=== PATIENT | female | born 1995 | race Hispanic/Latino ===

== ENCOUNTER 2021-05-28 16:25 | Emergency (ER) | payer OTHER ==
[2021-05-28 20:09] LABS: Bilirubin Neg (Negative); Blood, Urine 50 (Negative); Clarity Cloudy (Clear); Glucose, Urine (Dipstick) Normal (Negative); Ketone, Urine 150 mg/dL (Negative); Leukocyte 500 (Negative); Nitrite Positive (Negative); Protein, Urine (Dipstick) 30 mg/dl (Neg-Trace); Specific Gravity, Urine 1.025 (1.002-1.036)
[2021-05-28 20:41] LABS: RBC/HPF 0-3 HPF (0-3); WBC/HPF Greater than 50 HPF (0-3)
[2021-05-28 20:42] LABS: Bacteria/HPF 2+ HPF (None Seen); Squamous Epithelial Greater than 50 HPF (0-3)
[2021-05-28 21:11] LABS: #Eosinphils 0.1 10x3/uL (0.0-0.5); #Monocytes 0.4 10x3/uL (0.0-1.1); #Neutrophils 4.2 10x3/uL (1.5-8.4); %Basophils 0.3 % (0.0-2.0); %Lymphocytes 30.6 % (18.0-47.0); %Monocytes 6.1 % (0.0-10.0); %Neutrophils 61.7 % (40.0-75.0); Hemoglobin 13.9 g/dL (12.0-15.5); Mean Corpuscular HGB CONC 35.2 g/dL (32.0-36.0); Mean Platelet Volume 9.8 fl (7.4-10.4); Platelet Count 200 10x3/uL (150-450); Red Blood Cell (RBC) Count 4.49 10x6/uL (3.90-5.03); White Blood Cell (WBC) Count 6.9 10x3/uL (3.5-10.5)
[2021-05-28 21:38] LABS: ALT (SGPT) 25 U/L (8-55); AST (SGOT) 23 U/L (5-34); Albumin 4.3 g/dL (3.5-5.0); Alkaline Phosphatase 76 U/L (40-110); Anion Gap 14 mmol/L (10-20); BUN (Urea Nitrogen) 6 mg/dL (7.0-18.7); Bilirubin, Total 0.4 mg/dL (0.2-1.2); Calc. Creatinine Clearance 0 mL/min (70-130); Calcium 9.4 mg/dL (7.8-10.44); Carbon Dioxide 24 mmol/L (22-29); Chloride 103 mmol/L (98-107); Globulin 3.8 g/dL (2.4-3.5); Glucose 92 mg/dL (70-105); Potassium 3.7 mmol/L (3.5-5.1); Protein, Total 8.1 g/dL (6.0-8.3); Sodium 137 mmol/L (136-145)
[2021-05-28] MEDS ORDERED: Ondansetron ODT 4 MG TAB ONE (22:14)
[2021-05-29 16:58] LABS: SARS-CoV-2 PCR by NAA DETECTED (NotDetected)
== END 2021-05-28 22:28 | disposition home or self-care (01) ==
LOC: CSHERS 16:25
DX: O98.511 Other viral diseases complicating pregnancy, first trimester (principal); U07.1 COVID-19; Z3A.12 12 weeks gestation of pregnancy; O21.0 Mild hyperemesis gravidarum
CPT/HCPCS: 80053; 81003; 81015; 85025; 99284; Q0162; U0003; U0005

== ENCOUNTER 2021-07-24 16:58 | Day surgery (SDC) | payer OTHER ==
[2021-07-24 18:49] VITALS: BMI 21.9
[2021-07-24 18:56] LABS: #Basophils 0.1 10x3/uL (0.0-0.2); #Monocytes 0.5 10x3/uL (0.0-1.1); #Neutrophils 6.9 10x3/uL (1.5-8.4); %Basophils 0.8 % (0.0-2.0); %Eosinophils 0.3 % (0.0-6.0); %Monocytes 5.9 % (0.0-10.0); %Neutrophils 74.9 % (40.0-75.0); Hemoglobin 11.8 g/dL (12.0-15.5); Mean Corpuscular HGB CONC 33.8 g/dL (32.0-36.0); Mean Corpuscular Hemoglobin 31.1 pg (27.0-33.0); Mean Corpuscular Volume 92.1 fl (81.6-98.3); Mean Platelet Volume 10.3 fl (7.4-10.4); Platelet Count 207 10x3/uL (150-450); RBC Distribution Width 13.7 % (11.5-14.5); Red Blood Cell (RBC) Count 3.79 10x6/uL (3.90-5.03); White Blood Cell (WBC) Count 9.2 10x3/uL (3.5-10.5)
[2021-07-24 19:03] LABS: ALT (SGPT) 66 U/L (8-55); AST (SGOT) 41 U/L (5-34); Albumin 3.8 g/dL (3.5-5.0); Alkaline Phosphatase 78 U/L (40-110); Anion Gap 18 mmol/L (10-20); BUN (Urea Nitrogen) 6 mg/dL (7.0-18.7); Bilirubin, Total 0.5 mg/dL (0.2-1.2); CK (CPK) 16 U/L (29-168); Calc. Creatinine Clearance 131 mL/min (70-130); Calcium 9.5 mg/dL (7.8-10.44); Carbon Dioxide 21 mmol/L (22-29); Chloride 105 mmol/L (98-107); Globulin 3.5 g/dL (2.4-3.5); Glucose 85 mg/dL (70-105); Potassium 3.7 mmol/L (3.5-5.1); Protein, Total 7.3 g/dL (6.0-8.3); Sodium 140 mmol/L (136-145)
[2021-07-24] MEDS ORDERED: hydrALAZINE 20 MG/ML VIAL SLOW IVP PRN (19:35)
[2021-07-24 19:46] LABS: Bilirubin Neg (Negative); Blood, Urine 25 (Negative); Clarity Clear (Clear); Glucose, Urine (Dipstick) Normal (Negative); Ketone, Urine 150 mg/dL (Negative); Leukocyte 100 (Negative); Nitrite Positive (Negative); Protein, Urine (Dipstick) 15 mg/dl (Neg-Trace); Specific Gravity, Urine 1.015 (1.002-1.036); Urobilinogen Normal mg/dL (Less than 2)
[2021-07-24 19:53] LABS: Bacteria/HPF 3+ HPF (None Seen); RBC/HPF 0-3 HPF (0-3); Squamous Epithelial 0-3 HPF (0-3); Urine Culture Reflex Yes Yes; WBC/HPF 21-50 HPF (0-3)
[2021-07-24] MEDS ORDERED: cefTRIAXone\\ROCEPHIN 1 GM VIAL IM SCH (20:00)
[2021-07-24] MEDS ORDERED: Lactated Ringer's 1,000 ML IV SCH (20:00)
[2021-07-24] MEDS ORDERED: Sodium Chloride 0.9% 1,000 ML IV SCH (20:15)
[2021-07-24] MEDS ORDERED: Sodium Chloride 0.9% 100 ML ONE (20:23)
[2021-07-24] MEDS ORDERED: cefTRIAXone\\ROCEPHIN 2 GM in Sodium Chloride 0.9% 100 ML IVPB SCH (21:00)
[2021-07-25 18:37] LABS: Chlamydia by PCR Not Detected (NotDetected); GC by PCR Not Detected (NotDetected)
== END 2021-07-24 21:25 | disposition home or self-care (01) ==
LOC: CSHERS 16:58 → CSHLD/OP 16:58 → EDSTATUS 17:26 → CSHLD/OP 21:25
PROVIDERS: ATTEND Obstetrics & Gynecology
DX: O23.42 Unspecified infection of urinary tract in pregnancy, second trimester (principal); N39.0 Urinary tract infection, site not specified; O99.891 Other specified diseases and conditions complicating pregnancy; R74.01 Elevation of levels of liver transaminase levels; Z3A.21 21 weeks gestation of pregnancy; Z86.16 Personal history of COVID-19
CPT/HCPCS: 36415; 51701; 80053; 81001; 82550; 84702; 85025; 86900; 86901; 87086; 87480; 87491; 87510; 87591; 87660; 96361; 96365; 99285; J0696; J3490

== ENCOUNTER 2021-10-16 21:51 | Day surgery (SDC) | payer OTHER ==
[2021-10-16 22:25] VITALS: BMI 25.0
[2021-10-16] MEDS ORDERED: hydrALAZINE 20 MG/ML VIAL SLOW IVP PRN (22:41)
[2021-10-16] MEDS ORDERED: Acetaminophen 500 MG TAB PO SCH (23:45)
[2021-10-16 23:46] LABS: Bilirubin Neg (Negative); Blood, Urine Negative (Negative); Clarity Clear (Clear); Glucose, Urine (Dipstick) Normal (Negative); Ketone, Urine Negative (Negative); Leukocyte 25 (Negative); Nitrite Negative (Negative); Protein, Urine (Dipstick) Negative (Neg-Trace); Urobilinogen Normal mg/dL (Less than 2); pH, Urine 6.5 (5.0-9.0)
[2021-10-16 23:52] LABS: Bacteria/HPF 1+ HPF (None Seen); RBC/HPF 0-3 HPF (0-3)
== END 2021-10-17 01:10 | disposition home or self-care (01) ==
LOC: CSHLD/OP 21:51
PROVIDERS: ATTEND Student in an Organized Health Care Education/Training Program
DX: O99.891 Other specified diseases and conditions complicating pregnancy (principal); M54.50 Low back pain, unspecified; R10.30 Lower abdominal pain, unspecified; R07.9 Chest pain, unspecified; Z3A.32 32 weeks gestation of pregnancy
CPT/HCPCS: 81001; 87077; 87086; 87186; 93005; 93010

== ENCOUNTER 2021-11-05 11:01 | Day surgery (SDC) | payer OTHER ==
[2021-11-05 11:44] VITALS: BMI 25.0
[2021-11-05] MEDS ORDERED: hydrALAZINE 20 MG/ML VIAL SLOW IVP PRN (11:53)
[2021-11-05] MEDS ORDERED: Ondansetron ODT 4 MG TAB PO PRN (11:56)
[2021-11-05] MEDS ORDERED: Lactated Ringer's 1,000 ML IV SCH (12:00)
[2021-11-05] MEDS ORDERED: Polyethylene Glycol 3350 17 GM Packet PO SCH (12:45)
[2021-11-06] MEDS ORDERED: Polyethylene Glycol 3350 17 GM Packet PO SCH (09:00)
== END 2021-11-05 15:48 | disposition home or self-care (01) ==
LOC: CSHLD/OP 11:01
PROVIDERS: ATTEND Obstetrics & Gynecology
DX: O99.891 Other specified diseases and conditions complicating pregnancy (principal); R10.12 Left upper quadrant pain; O21.2 Late vomiting of pregnancy; O99.613 Diseases of the digestive system complicating pregnancy, third trimester; K59.00 Constipation, unspecified; Z3A.36 36 weeks gestation of pregnancy; Z86.16 Personal history of COVID-19
CPT/HCPCS: 96360; 96361; 99283; Q0162

== ENCOUNTER 2021-11-10 17:24 | Day surgery (SDC) | payer OTHER ==
[2021-11-10 18:02] VITALS: BMI 24.5
[2021-11-10] MEDS ORDERED: hydrALAZINE 20 MG/ML VIAL SLOW IVP PRN (19:01)
[2021-11-10 19:02] LABS: Bilirubin Neg (Negative); Blood, Urine 25 (Negative); Clarity Clear (Clear); Glucose, Urine (Dipstick) Normal (Negative); Ketone, Urine 50 mg/dL (Negative); Leukocyte 100 (Negative); Nitrite Negative (Negative); Protein, Urine (Dipstick) Negative (Neg-Trace); Urobilinogen Normal mg/dL (Less than 2); pH, Urine 6.5 (5.0-9.0)
[2021-11-10] MEDS ORDERED: Acetaminophen 325 MG TAB PO PRN (19:04)
[2021-11-10 19:09] LABS: Squamous Epithelial 0-3 HPF (0-3); Urine Culture Reflex No No
[2021-11-10 19:10] LABS: Bacteria/HPF 1+ HPF (None Seen)
[2021-11-10] MEDS ORDERED: Lactated Ringer's 1,000 ML IV SCH ×2 (19:15→21:45)
[2021-11-10 19:27] LABS: #Monocytes 0.8 10x3/uL (0.0-1.1); %Basophils 0.2 % (0.0-2.0); %Eosinophils 0.4 % (0.0-6.0); %Monocytes 8.4 % (0.0-10.0); %Neutrophils 73.6 % (40.0-75.0); Hemoglobin 9.2 g/dL (12.0-15.5); Mean Corpuscular HGB CONC 32.1 g/dL (32.0-36.0); Mean Corpuscular Hemoglobin 25.5 pg (27.0-33.0); Mean Corpuscular Volume 79.5 fl (81.6-98.3); Mean Platelet Volume 10.4 fl (7.4-10.4); Platelet Count 208 10x3/uL (150-450); RBC Distribution Width 16.6 % (11.5-14.5); Red Blood Cell (RBC) Count 3.61 10x6/uL (3.90-5.03); White Blood Cell (WBC) Count 9.5 10x3/uL (3.5-10.5)
[2021-11-10 19:33] LABS: ALT (SGPT) 16 U/L (8-55); AST (SGOT) 21 U/L (5-34); Albumin 3.5 g/dL (3.5-5.0); Alkaline Phosphatase 229 U/L (40-110); Anion Gap 16 mmol/L (10-20); BUN (Urea Nitrogen) 6 mg/dL (7.0-18.7); Bilirubin, Total 0.6 mg/dL (0.2-1.2); Calc. Creatinine Clearance 155 mL/min (70-130); Calcium 8.8 mg/dL (7.8-10.44); Carbon Dioxide 19 mmol/L (22-29); Chloride 102 mmol/L (98-107); Globulin 3.2 g/dL (2.4-3.5); Glucose 74 mg/dL (70-105); Lipase 40 U/L (8-78); Potassium 4.1 mmol/L (3.5-5.1); Protein, Total 6.7 g/dL (6.0-8.3); Sodium 133 mmol/L (136-145)
[2021-11-10 19:48] LABS: SARS-CoV-2 NAA Rapid Test Not Detected (NotDetected)
== END 2021-11-10 23:40 | disposition home or self-care (01) ==
LOC: CSHLD/OP 17:24
PROVIDERS: ATTEND Family Medicine
DX: O36.8330 Maternal care for abnormalities of the fetal heart rate or rhythm, third trimester, not applicable or unspecified (principal); O99.891 Other specified diseases and conditions complicating pregnancy; R10.10 Upper abdominal pain, unspecified; R53.81 Other malaise; O99.013 Anemia complicating pregnancy, third trimester; O23.43 Unspecified infection of urinary tract in pregnancy, third trimester; Z3A.37 37 weeks gestation of pregnancy; Z86.16 Personal history of COVID-19; Z79.82 Long term (current) use of aspirin; Z20.822 Contact with and (suspected) exposure to COVID-19
CPT/HCPCS: 36415; 80053; 81001; 82728; 83605; 83690; 85025; 87077; 87086

== ENCOUNTER 2021-11-14 13:18 | Day surgery (SDC) | payer OTHER ==
[2021-11-14] MEDS ORDERED: Iron Sucrose Complex 500 MG, Admixture Fee 1 EACH in Sodium Chloride 0.9% 250 ML 250 ML IVPB SCH (14:00)
[2021-11-14] MEDS ORDERED: Acetaminophen 500 MG TAB PO SCH (14:00)
== END 2021-11-14 19:03 | disposition home or self-care (01) ==
LOC: CSHSDC/OP 13:18
PROVIDERS: ATTEND Student in an Organized Health Care Education/Training Program
DX: O99.019 Anemia complicating pregnancy, unspecified trimester (principal)
CPT/HCPCS: J1756; J7050

== ENCOUNTER 2021-11-27 19:30 | Inpatient (IN) | payer MEDICAID, OTHER, SELFPAY ==
[~2021-11-27 19:30] MED LIST: Bupivacaine HCl 0.5%/Epinephrine 1:200,000/PF 30 ml Vial ONE
[2021-11-27 20:14] VITALS: BMI 25.3
[2021-11-27] MEDS ORDERED: hydrALAZINE 20 MG/ML VIAL SLOW IVP PRN (21:26)
[2021-11-27] MEDS ORDERED: Ondansetron PF 4 MG/2 ML Vial IVP PRN (21:26)
[2021-11-27] MEDS ORDERED: Promethazine HCl 25 MG/ML VIAL IM PRN (21:26)
[2021-11-27] MEDS ORDERED: Acetaminophen 500 MG TAB PO PRN (21:26)
[2021-11-27] MEDS ORDERED: Lactated Ringer's 1,000 ML IV SCH (21:30)
[2021-11-27 21:40] LABS: Hemoglobin 9.3 g/dL (12.0-15.5); Mean Corpuscular HGB CONC 32.3 g/dL (32.0-36.0); Mean Corpuscular Hemoglobin 26.6 pg (27.0-33.0); Mean Corpuscular Volume 82.3 fl (81.6-98.3); Mean Platelet Volume 10.9 fl (7.4-10.4); Platelet Count 196 10x3/uL (150-450); RBC Distribution Width 22.5 % (11.5-14.5); White Blood Cell (WBC) Count 5.8 10x3/uL (3.5-10.5)
[2021-11-27 22:09] LABS: Hep B Surf Ag Non-Reactive S/CO (NonReactive)
[2021-11-27 22:17] LABS: HBSAg Index 0.16 S/CO (0-0.99)
[2021-11-27] MEDS ORDERED: Carboprost 250 MCG/ML AMP IM PRN (22:21)
[2021-11-27] MEDS ORDERED: Lidocaine 1% (PF) 30 ML VIAL SC PRN (22:21)
[2021-11-27] MEDS ORDERED: Misoprostol 200 MCG TAB PR PRN (22:21)
[2021-11-27] MEDS ORDERED: Ibuprofen 800 MG TAB PO PRN (22:21)
[2021-11-27] MEDS ORDERED: Methylergonovine 0.2 MG/ML VIAL IM PRN (22:21)
[2021-11-27] MEDS ORDERED: Misoprostol 100 MCG TAB VAG SCH (22:30)
[2021-11-27] MEDS ORDERED: NS w/ Oxytocin 30 units 500 ML IV SCH (22:30)
[2021-11-27 22:49] LABS: Syphilis Antibody Nonreactive (Nonreactive); Syphilis Antibody Index 0.02 S/CO (<1.00 Non-Reactive)
[2021-11-28 00:03] LABS: SARS-CoV-2 NAA Rapid Test Not Detected (NotDetected)
[2021-11-28 00:20] LABS: ALT (SGPT) 8 U/L (8-55); AST (SGOT) 16 U/L (5-34); Albumin 3.2 g/dL (3.5-5.0); Alkaline Phosphatase 229 U/L (40-110); Anion Gap 15 mmol/L (10-20); BUN (Urea Nitrogen) 14 mg/dL (7.0-18.7); Bilirubin, Total 0.3 mg/dL (0.2-1.2); Calc. Creatinine Clearance 143 mL/min (70-130); Calcium 8.5 mg/dL (7.8-10.44); Carbon Dioxide 20 mmol/L (22-29); Chloride 106 mmol/L (98-107); Estimated GFR 124; Globulin 2.8 g/dL (2.4-3.5); Glucose 95 mg/dL (70-105); Sodium 137 mmol/L (136-145)
[2021-11-28] MEDS ORDERED: Misoprostol 100 MCG TAB ONE (11:59)
[2021-11-28] MEDS ORDERED: NS w/ Oxytocin 30 units 500 ML IVPB SCH (13:38)
[2021-11-28] MEDS ORDERED: Fentanyl 2 mcg/Bup 0.1% Cadd 100 ML ONE (19:47)
[2021-11-28] MEDS ORDERED: ePHEDrine Sulfate 50 MG/10 ML VIAL SLOW IVP PRN (19:49)
[2021-11-28] MEDS ORDERED: Acetaminophen 325 MG TAB PO PRN (19:49)
[2021-11-28] MEDS ORDERED: Moisturizing Cream (Eucerin) 113 GM JAR TOP PRN (19:49)
[2021-11-28] MEDS ORDERED: Lactated Ringer's 500 ML IV PRN (19:49)
[2021-11-28] MEDS ORDERED: diphenhydrAMINE 50 MG/ML VIAL IVP PRN (19:49)
[2021-11-28] MEDS ORDERED: Naloxone HCl 0.4 mg/ml Vial IVP PRN ×2 (19:49)
[2021-11-28] MEDS ORDERED: Ondansetron PF 4 MG/2 ML Vial IVP PRN (19:49)
[2021-11-28] MEDS ORDERED: Promethazine HCl 25 MG/ML VIAL IM PRN (19:49)
[2021-11-28] MEDS ORDERED: Communication Order-Pharmacy FS SCH (20:00)
[2021-11-28] MEDS ORDERED: Fentanyl 2 mcg/Bupivacaine 0.1% Cassette 100 ML EPIDURAL SCH (20:00)
[2021-11-29] MEDS ORDERED: Carboprost 250 MCG/ML AMP ONE (00:20)
[2021-11-29] MEDS ORDERED: Lanolin Ointment 7 GM TUBE TOP PRN ×2 (01:39→03:48)
[2021-11-29] MEDS ORDERED: hydrALAZINE 20 MG/ML VIAL SLOW IVP PRN ×2 (01:39→03:48)
[2021-11-29] MEDS ORDERED: Bisacodyl 10 MG SUPP PR PRN ×2 (01:39→03:48)
[2021-11-29] MEDS ORDERED: Benzocaine-Menthol 82.5 ML CAN TOP PRN (01:39)
[2021-11-29] MEDS ORDERED: Milk Of Magnesia 30 ML UDCUP PO PRN ×2 (01:39→03:48)
[2021-11-29] MEDS ORDERED: Boostrix 0.5 ML (Tdap) VIAL IM ONE (03:48)
[2021-11-29] MEDS ORDERED: Acetaminophen 325 MG TAB PO PRN (03:48)
[2021-11-29] MEDS ORDERED: Ferrous Sulfate 325 MG TAB PO SCH ×2 (04:00→08:00)
[2021-11-29] MEDS ORDERED: Docusate 100 MG CAP PO SCH ×2 (04:00→09:00)
[2021-11-29] MEDS: Ibuprofen 800 MG TAB PO SCH ×3 (04:21→21:54)
[2021-11-29 05:12] LABS: Hemoglobin 9.3 g/dL (12.0-15.5)
[2021-11-29] MEDS ORDERED: Ibuprofen 800 MG TAB PO SCH (06:00)
[2021-11-29] MEDS: Prenatal Vitamin 1 TAB PO SCH (08:01)
[2021-11-29] MEDS ORDERED: Prenatal Vitamin 1 TAB PO SCH (09:00)
[2021-11-29] MEDS: Measles/Mumps/Rubella 10 MCG/0.5 ML VIAL SC ONE (10:24)
[2021-11-29] MEDS: Ferrous Sulfate 325 MG TAB PO SCH (17:07)
[2021-11-29] MEDS: Docusate 100 MG CAP PO SCH (21:54)
[2021-11-30] MEDS: Ibuprofen 800 MG TAB PO SCH ×3 (05:41→21:17)
[2021-11-30] MEDS: HYDROcodone/Acetaminophen 5/325 mg Tablet PO PRN ×2 (05:42→18:56)
[2021-11-30] MEDS ORDERED: Measles/Mumps/Rubella 10 MCG/0.5 ML VIAL SC ONE (07:39)
[2021-11-30] MEDS: Docusate 100 MG CAP PO SCH ×2 (07:48→21:20)
[2021-11-30] MEDS: Ferrous Sulfate 325 MG TAB PO SCH ×2 (07:49→16:37)
[2021-11-30] MEDS: Prenatal Vitamin 1 TAB PO SCH (07:49)
[2021-11-30] MEDS: Acetaminophen 325 MG TAB PO SCH ×3 (08:07→16:22)
[2021-11-30] MEDS: Measles/Mumps/Rubella 10 MCG/0.5 ML VIAL SC ONE (14:44)
[2021-11-30 21:58] LABS: #Monocytes 0.6 10x3/uL (0.0-1.1); #Neutrophils 8.1 10x3/uL (1.5-8.4); %Basophils 0.3 % (0.0-2.0); %Eosinophils 0.2 % (0.0-6.0); %Lymphocytes 9.7 % (18.0-47.0); %Monocytes 6.3 % (0.0-10.0); %Neutrophils 82.7 % (40.0-75.0); Hemoglobin 9.1 g/dL (12.0-15.5); Mean Corpuscular HGB CONC 32.4 g/dL (32.0-36.0); Mean Corpuscular Hemoglobin 26.1 pg (27.0-33.0); Mean Corpuscular Volume 80.7 fl (81.6-98.3); Mean Platelet Volume 10.1 fl (7.4-10.4); Platelet Count 179 10x3/uL (150-450); RBC Distribution Width 23.3 % (11.5-14.5); Red Blood Cell (RBC) Count 3.48 10x6/uL (3.90-5.03); White Blood Cell (WBC) Count 9.8 10x3/uL (3.5-10.5)
[2021-11-30] MEDS ORDERED: Sodium Chloride 0.9% 100 ML ONE (22:28)
[2021-11-30 22:30] LABS: Anisocytosis SLIGHT = 6-15 cells (100X) (0-5/hpf)
[2021-11-30 22:31] LABS: Microcytosis SLIGHT = 6-15 cells (100X) (0-5/hpf); Platelet Morphology Comment Appears Adequate
[2021-11-30] MEDS: Clindamycin/D5W 900 MG in Premix Bag 1 BAG IVPB SCH (22:54)
[2021-12-01] MEDS: Acetaminophen 325 MG TAB PO SCH ×5 (00:29→13:01)
[2021-12-01] MEDS: Ibuprofen 800 MG TAB PO SCH (05:36)
[2021-12-01] MEDS: Clindamycin/D5W 900 MG in Premix Bag 1 BAG IVPB SCH (05:40)
[2021-12-01 07:29] VITALS: TEMP 98.5
[2021-12-01] MEDS ORDERED: Amoxicillin/Potassium Clav 875 MG TAB PO SCH (09:00)
[2021-12-01] MEDS: Ferrous Sulfate 325 MG TAB PO SCH (09:18)
[2021-12-01] MEDS: Prenatal Vitamin 1 TAB PO SCH (09:18)
[2021-12-01] MEDS: Docusate 100 MG CAP PO SCH (09:18)
[2021-12-01 11:04] VITALS: BP 99/60
[2021-12-01] MEDS: Measles/Mumps/Rubella 10 MCG/0.5 ML VIAL SC ONE (12:52)
== END 2021-12-01 13:40 | disposition home or self-care (01) | DRG 806 ==
LOC: CSHLD 19:30 → EDBD 19:30 → CSHPP 11-29 04:15
PROVIDERS: ADMIT Family Medicine; ATTEND Family Medicine
PROC: 3E0P7VZ Introduction of Hormone into Female Reproductive, Via Natural or Artificial Opening (ICD-10-PCS; 2021-11-28)
PROC: 0U7C7ZZ Dilation of Cervix, Via Natural or Artificial Opening (ICD-10-PCS; 2021-11-28)
PROC: 10907ZC Drainage of Amniotic Fluid, Therapeutic from Products of Conception, Via Natural or Artificial Opening (ICD-10-PCS; 2021-11-28)
PROC: 10H07YZ Insertion of Other Device into Products of Conception, Via Natural or Artificial Opening (ICD-10-PCS; 2021-11-28)
PROC: 10E0XZZ Delivery of Products of Conception, External Approach (ICD-10-PCS; principal; 2021-11-29)
PROC: 0UQMXZZ Repair Vulva, External Approach (ICD-10-PCS; 2021-11-29)
PROC: 0UQG7ZZ Repair Vagina, Via Natural or Artificial Opening (ICD-10-PCS; 2021-11-29)
DX: O99.02 Anemia complicating childbirth (principal); O99.354 Diseases of the nervous system complicating childbirth; Z37.0 Single live birth; O71.4 Obstetric high vaginal laceration alone; O86.4 Pyrexia of unknown origin following delivery; Z20.822 Contact with and (suspected) exposure to COVID-19; Z3A.39 39 weeks gestation of pregnancy; Z86.16 Personal history of COVID-19; G43.909 Migraine, unspecified, not intractable, without status migrainosus; Z87.440 Personal history of urinary (tract) infections; D50.9 Iron deficiency anemia, unspecified; O76 Abnormality in fetal heart rate and rhythm complicating labor and delivery; O77.0 Labor and delivery complicated by meconium in amniotic fluid; O69.81X0 Labor and delivery complicated by cord around neck, without compression, not applicable or unspecified; O71.82 Other specified trauma to perineum and vulva
CPT/HCPCS: 36415; 36416; 51702; 80053; 85014; 85018; 85025; 85027; 86780; 86850; 86900; 86901; 87340; 87804; 90707; J1580; J2590; J3490; J7120; U0002

== ENCOUNTER 2023-06-06 21:16 | Emergency (ER) | payer SELFPAY ==
[2023-06-06 21:38] LABS: Bilirubin Neg (Negative); Blood, Urine 50 (Negative); Glucose, Urine (Dipstick) Normal (Negative); Ketone, Urine Negative (Negative); Leukocyte Negative (Negative); Nitrite Negative (Negative); Protein, Urine (Dipstick) 15 mg/dl (Neg-Trace); Specific Gravity, Urine 1.015 (1.005-1.030)
[2023-06-06 21:40] LABS: Pregnancy Test - Urine (BHCG) POSITIVE (Negative); Pregu Control Background? CLEAR/WHITE (CLR/WHITE); Pregu Control Bar Appear? YES (CONTROL BAR); Specific Gravity 1.015 (1.002-1.036)
[2023-06-06] MEDS ORDERED: Acetaminophen 500 MG TAB ONE (22:00)
[2023-06-06] MEDS ORDERED: Ondansetron ODT 4 MG TAB ONE (22:00)
[2023-06-06 22:01] LABS: Clarity Clear (Clear)
[2023-06-06 22:02] LABS: CAUTI Indications for Culture Pelvic or flank pain; WBC/HPF 0-3 HPF (0-3)
[2023-06-06 22:03] LABS: Bacteria/HPF 2+ HPF (None Seen); Epithelial Cast 0-3 LPF (None Seen)
[2023-06-06 22:04] LABS: Urine Culture Reflex No No
== END 2023-06-06 22:10 | disposition home or self-care (01) ==
LOC: CSHERS 21:16
DX: O21.9 Vomiting of pregnancy, unspecified (principal); Z3A.08 8 weeks gestation of pregnancy
CPT/HCPCS: 81001; 81025; 99284; Q0162